=== PATIENT | male | born 1940 | race Caucasian/White ===

== ENCOUNTER → 2021-10-13 12:46 | Outpatient (BNVA) | payer OTHER, SELFPAY | PROVIDERS: PCP Family Medicine; Visit Provider Internal Medicine | DX: I48.91 Unspecified atrial fibrillation (principal); E03.9 Hypothyroidism, unspecified; I10 Essential (primary) hypertension; R06.00 Dyspnea, unspecified; Z79.01 Long term (current) use of anticoagulants; Z87.891 Personal history of nicotine dependence; M79.606 Pain in leg, unspecified | CPT/HCPCS: 99213; 99214 ==

== ENCOUNTER 2021-11-10 13:13 | Outpatient (CLI) | payer OTHER, SELFPAY ==
--- NOTE | 2021-11-10 15:00 | USCV_ITS ---
Michela Crystal Age: 80 Gender: M : 1940 Exam Date: 11/10/2021 14:22 Ordering Phys: Glen Montemayor M.D ([email or web address]) Technologist: Exam [place] [facility] [place]ication: SHORTNESS OF BREATH BP: 135 / 74 HR: 69 Rhythm: Sinus Technical Quality: Adequate MEASUREMENTS (Male / Female) Normal Values 2D ECHO LV Diastolic Diameter PLAX 5.0 cm 4.2 - 5.9 / 3.9 - 5.3 cm LV Systolic Diameter PLAX 3.1 cm IVS Diastolic Thickness 1.1 cm 0.6 - 1.0 / 0.6 - 0.9 cm IVS Systolic Thickness 1.6 cm LVPW Diastolic Thickness 1.5 cm 0.6 - 1.0 / 0.6 - 0.9 cm LVPW Systolic Thickness 1.5 cm LVOT Diameter 2.0 cm LV Ejection Fraction 2D Teich 68.4 % LV Ejection Fraction MOD 2C 60.2 % LV Ejection Fraction 2C AL 62.9 % LA Diameter 3.8 cm M-MODE LV Diastolic Diameter MM 5.2 cm 4.2 - 5.9 / 3.9 - 5.3 cm LV Systolic Diameter MM 3.5 cm LV Ejection Fraction MM Teich 61.0 % IVS Diastolic Thickness MM 1.1 cm 0.6 - 1.0 / 0.6 - 0.9 cm IVS Systolic Thickness MM 1.7 cm LVPW Diastolic Thickness MM 1.2 cm 0.6 - 1.0 / 0.6 - 0.9 cm LVPW Systolic Thickness MM 1.6 cm RV Diastolic Diameter MM 2.0 cm Aortic Annulus Diameter 3.5 cm LA Ao Ratio MM 1.3 MV E Point Septal Separation 1.3 cm DOPPLER AV Peak Velocity 127.0 cm/s LVOT Peak Velocity 109.0 cm/s AV Area Cont Eq vti 3.0 cm squared AV Area Cont Eq pk 2.8 cm squared MV Area PHT 5.0 cm squared Mitral E to A Ratio 2.5 MV E' Velocity 91.0 cm/s TR Peak Velocity 282.5 cm/s TR Peak Gradient 31.9 mmHg Right Atrial Pressure 3.0 mmHg Pulmonary Artery Systolic Pressu 34.9 mmHg PV Peak Velocity 73.0 cm/s FINDINGS Left Ventricle Left ventricle is normal in size. LV systolic function is normal with EF 55 to 60%. No regional wall motion abnormalities are seen. Right Ventricle RV is normal in size and function Right Atrium Normal in size Left Atrium Left atrium is dilated Mitral Valve Mitral valve is structurally normal. Mild mitral regurgitation Aortic Valve Aortic valve is structurally normal. No significant stenosis or regurgitation. Tricuspid Valve Tricuspid valve is normal structurally. Mild tricuspid regurgitation. Insufficient TR jet to appreciate RVSP Pulmonic Valve Mild pulmonic regurgitation Pericardium Normal Aorta Normal-sized IVC CONCLUSIONS LV systolic function is normal with EF of 55 to 60%. Left atrial dilation Mild mitral regurgitation Mild tricuspid regurgitation Mild pulmonic regurgitation No comparison studies are available Glen Montemayor MD (Electronically Signed) Final Date: 21 November 2021 23:23 S
== END 2021-11-10 13:14 | disposition home or self-care (01) ==
PROVIDERS: PCP Family Medicine; Visit Provider Internal Medicine
DX: I08.1 Rheumatic disorders of both mitral and tricuspid valves (principal)
CPT/HCPCS: 93306

== ENCOUNTER 2021-11-10 13:13 | Outpatient (CLI) | payer OTHER, SELFPAY ==
--- NOTE | 2021-11-10 14:15 | USCV_ITS ---
Michela Crystal Age: 80 Gender: M : 1940 Exam Date: 11/10/2021 14:38 Ordering Phys: Glen Montemayor M.D ([email or web address]) Technologist: Exam Location[place] [facility] [place] [facility] [place]ication: leg weakness Risk Factors: Previous Vascular Surgery: RIGHT LEFT BP: 110.0 / 64.00 BP: 110.0/ 68.00 0 0 Waveform Velocity (cm/s) Velocity (cm/s) Waveform Biphasic 80.8 Iliac Prox 91.7 Triphasic Biphasic 82.3 Iliac Mid 68.8 Monophasic Biphasic 78.5 Iliac Distal 83.3 Biphasic Biphasic 79.3 FARROWING WORKER 49.2 Biphasic Biphasic 82.3 SFA Prox 66.3 Triphasic Triphasic 77.7 SFA Mid 64.5 Biphasic Biphasic 85.4 SFA Dist 81.5 Biphasic Triphasic 70.7 POP 54.6 Biphasic Biphasic 71.0 MANAGER OF EMPLOYEE RELATIONS 51.1 Biphasic Biphasic 56.7 DPA 62.0 Triphasic 1.0 AMBAR 1.0 FINDINGS rt charter boat captain 110 rt dpa 110 lt charter boat captain 110 lt dpa 110 Normal resting ABIs bilaterally Near normal arterial Doppler waveforms Normal Doppler flow velocities CONCLUSIONS No evidence of any significant arterial obstruction, based on the above findings. Dr Berna Thorpe MD [facility] (Electronically Signed) Final Date: 16 November 2021 10:07 S
== END 2021-11-10 13:14 | disposition home or self-care (01) ==
LOC: RAD 13:14
PROVIDERS: PCP Family Medicine; Visit Provider Internal Medicine
DX: M79.606 Pain in leg, unspecified (principal)
CPT/HCPCS: 93925

== ENCOUNTER 2022-02-09 09:43 | Outpatient (CLI) | payer OTHER, SELFPAY ==
--- NOTE | 2022-02-09 11:15 | USCV_ITS ---
Michela Crystal Age: 81 Gender: M : 1940 Exam Date: 02/09/2022 11:07 Ordering Phys: Glen Montemayor M.D ([email or web address]) Technologist: Isai Paul [place] [facility] [place]: leg pain RIGHT LEFT Brachial 133.00 mmHg Brachial 127.00 mmHg Pressure (mmHg) Waveform Pressure (mmHg) Waveform 120.00 DIGITAL ASSOCIATE 149.00 142.00 DPA 143.00 1.07 Ankle/Brachial Index 1.12 70.00 Pre-Exercise Toe Pressure 98.00 0.53 Pre-Exercise Toe/Brachial Index 0.74 FINDINGS Resting AMBAR 1.07 on the right side and 1.12 on the left side. Resting TBI of 0.53 on the right side and 0.74 on the left side CONCLUSIONS 1. Normal resting AMBAR and TBI on the left side suggesting no significant arterial obstruction. 2. Normal resting AMBAR with slightly diminished resting TBI on the right side suggesting mild peripheral artery disease , possibly involving the distal vessels Dr Berna Thorpe MD [facility] (Electronically Signed) Final Date: 09 February 2022 21:03 S
== END 2022-02-09 09:44 | disposition home or self-care (01) ==
LOC: RAD 09:50
PROVIDERS: PCP Family Medicine; Visit Provider Internal Medicine
DX: M79.604 Pain in right leg (principal)
CPT/HCPCS: 93922

== ENCOUNTER 2022-02-11 16:29 | Emergency (ER) | payer OTHER, SELFPAY ==
[2022-02-11 16:58] VITALS: BP 112/70; PULSE 72; RESP 18; TEMP 36.6; O2SAT 95
--- NOTE | 2022-02-11 17:13 | ED_ITS ---
HPI - SOB/Dyspnea General: Chief Complaint: Shortness of Breath/Dyspnea Stated Complaint: abd pain, sob Time Seen by Provider: 02/11/22 17:13 History of Present Illness: HPI Narrative: Mr Crystal is an 81-year-old gentleman with history of hypertension, thyroid disorder, atrial fibrillation on chronic anticoagulation presenting to the emergency department due to shortness of breath and generalized weakness. He endorses progressively worsening symptoms for approximately 1 month. He describes feeling proximal muscle weakness in his lower extremities to the point that he feels difficulty walking. He also endorses progressively worsening dyspnea on exertion. He reports being unable to walk from his bedroom to the bathroom because he gets short of breath. Denies associated chest pain or infectious symptoms with this. Intensity symptoms is moderate to severe and worse with exertion. No other specific changes in health, exacerbating, or alleviating factors identified. Onset (ago): week(s) Timing: progressively worsening Severity: moderate Exacerbating factors: exertion and movement Known history of: other Review of Systems General: Reports: 10 or more systems reviewed and unremarkable except in HPI and below PFSH ED PFSH: Medical History Abdominal aortic aneurysm (AAA) Atrial fibrillation Celiac disease GERD (gastroesophageal reflux disease) HTN (hypertension) Hypothyroidism Surgical History S/P PTCA (percutaneous transluminal coronary angioplasty) Social History Smoking and tobacco status: never smoked Physical Exam Const: COMMON NORMALS: patient oriented x3 and alert GENERAL APPEARANCE: cooperative and well developed HENMT: COMMON NORMALS: normocephalic and atraumatic HEAD & SCALP: normocephalic and atraumatic Eye: COMMON NORMALS: conjunctivae normal CONJUNCTIVA: Yes conjunctivae normal SCLERA: sclerae normal Neck/C-Spine: COMMON NORMALS: supple GENERAL: Yes trachea midline Resp: COMMON NORMALS: clear to auscultation bilaterally EFFORT & INSPECTION: Yes able to speak in complete sentences AUSCULTATION: clear to auscultation bilaterally Cardio: COMMON NORMALS: regular rate and regular rhythm RATE: regular rate RHYTHM: regular rhythm GI: COMMON NORMALS: Soft to palpation PALPATION: Yes Soft to palpation, No Tenderness to palpation present (GI), No Guarding due to palpation present (GI) and No Rigid due to palpation Extremity: GENERAL: Yes normal exam except as noted and No edema Neuro: COMMON NORMALS: patient oriented x3, CN's II-XII intact bilaterally, moves all extremities, no focal motor deficits and no sensory deficits noted SENSORIUM/ORIENTATION: Yes alert and No Orientation impaired Psych: COMMON NORMALS: mental status grossly normal and Normal thought process present THOUGHT PROCESS: Normal thought process present Course Vital Signs: Vital signs: Vital Signs Temperature 97.8 F 02/11/22 16:58 Pulse Rate 83 02/11/22 21:36 Respiratory Rate 18 02/11/22 21:36 Blood Pressure 132/76 02/11/22 21:36 Pulse Oximetry 95 02/11/22 21:36 Oxygen Delivery Me thod 02/11/22 16:58 MDM - SOB/Dyspnea Medical Decision Making 81-year-old gentleman presenting with generalized illness that has been increasing. Mildly ill appearing on exam. EKG notable for atrial fibrillation with slow ventricular spots, no STEMI. Labs with mild leukocytosis, hemoglobin normal. Metabolic panel with elevated creatinine, patient does endorse a history of kidney disease. Initial lactic acid elevated with improvement on repeat. 2-hour delta troponin is normal. Negative viral studies. Chest x-ray with COPD and effusions. CT chest with pulmonary fibrosis and effusions. Incidental findings discussed. Patient given steroids and Lasix. I discussed various disposition options with patient. He is comfortable with discharge. He is on room air and I will message case management for follow-up. Most likely etiology of patient's symptoms is acute on chronic heart failure and exacerbation of underlying pulmonary fibrosis as well as baseline CKD. The results of ED evaluation were discussed with the patient including prescriptions and/or symptomatic cares (if applicable) including appropriate and responsible use, followup plan, and return precautions. The patient verbalized understanding and felt safe for discharge. Medical Records I reviewed the patient's medical records. Lab Data I reviewed the patient's lab results. 02/11/22 17:51 02/11/22 17:51 Labs/Radiology: Radiology Impressions Chest X-Ray 02/11/22 17:31 IMPRESSION: 1. The lungs are hyperinflated, consistent with COPD. 2. Moderate-sized left pleural effusion. 3. Increased density at the left lung base consistent with atelectasis versus consolidation. 4. Nonspecific 6 mm nodule, right upper lobe. No previous studies available for comparison. Consider noncontrast CT chest to further evaluate. Chest CT 02/11/22 19:52 IMPRESSION: 1. Bilateral subpleural fibrosis in both lungs. Compressive atelectasis noted in the inferior lingula and the left lower lobe. No consolidative infiltrate. 2. Moderate-sized left pleural effusion. 3. Diffuse atherosclerosis of the aorta. Ascending aorta is dilated, measuring 4.2 cm in transverse diameter. Descending thoracic aorta also measures 4.2 cm in diameter. Recommend clinical assessment and follow-up. 4. Tiny calcified gallstones are seen in the dependent portion of the gallbladder. No changes of cholecystitis. Laboratory Results WBC 11.0 10^3/uL (4.0-10.0) H 02/11/22 17:51 RBC 4.96 10^6/uL (4.1-5.3) 02/11/22 17:51 Hgb 16.2 g/dL (11.7-16.6) 02/11/22 17:51 Hct 48.5 % (42.0-52.0) 02/11/22 17:51 MCV 97.8 fl (80-94) H 02/11/22 17:51 MCH 32.7 pg (28.0-34.0) 02/11/22 17:51 MCHC 33.4 g/dL (30.0-36.0) 02/11/22 17:51 RDW 12.7 % (12.1-15.1) 02/11/22 17:51 Plt Count 327 10^3/cmm (130-400) 02/11/22 17:51 MPV 10.1 fL (7.4-10.4) 02/11/22 17:51 Neut % (Auto) 85.6 % 02/11/22 17:51 Lymph % (Auto) 5.6 % 02/11/22 17:51 [place] % (Auto) 7.7 % 02/11/22 17:51 Eos % (Auto) 0.2 % 02/11/22 17:51 Baso % (Auto) 0.5 % 02/11/22 17:51 Neut # (Auto) 9.40 10^3/uL (1.8-7.7) H 02/11/22 17:51 Lymph # (Auto) 0.6 10^3/uL (0.8-4.8) L 02/11/22 17:51 [place] # (Auto) 0.9 10^3/uL (0.2-0.9) 02/11/22 17:51 Eos # (Auto) 0.0 10^3/uL (0.0-0.8) 02/11/22 17:51 Baso # (Auto) 0.1 10^3/uL (0.0-0.1) 02/11/22 17:51 Nucleated RBC % (auto) 0 % 02/11/22 17:51 Nucleated RBCs # 0.0 /100WBC 02/11/22 17:51 ESR 6 mm/hr (0-10) 02/11/22 17:51 Sodium 140 mmol/L (136-145) 02/11/22 17:51 Potassium 4.2 mmol/L (3.5-5.1) 02/11/22 17:51 Chloride 101 mmol/L (98-107) 02/11/22 17:51 Carbon Dioxide 22 mmol/L (22-29) 02/11/22 17:51 Anion Gap 21.2 (5-19) H 02/11/22 17:51 BUN 37 mg/dL (8-23) H 02/11/22 17:51 Creatinine 2.4 mg/dL (0.7-1.2) H 02/11/22 17:51 GFR Calculation Not Reportable 02/11/22 17:51 Glucose 131 mg/dL (65-115) H 02/11/22 17:51 Calculated Osmolality 300 mOsm/kg (285-295) H 02/11/22 17:51 Lactic Acid 3.1 mmol/L (0.5-2.2) H 02/11/22 17:51 Lactic Acid (Sepsis) 1.6 mmol/L (0.5-2.2) 02/11/22 19:52 Calcium 9.8 mg/dL (8.5-10.5) 02/11/22 17:51 Total Bilirubin 1.3 mg/dL (0.15-1.2) H 02/11/22 17:51 AST 16 U/L (0-40) 02/11/22 17:51 ALT 18 U/L (0-41) 02/11/22 17:51 Alkaline Phosphatase 169 U/L (40-130) H 02/11/22 17:51 Creatine Kinase 50 U/L (39-308) 02/11/22 17:51 Troponin T Baseline 31 ng/L (0-15) H 02/11/22 17:51 Troponin T 120 Minute 23.56 ng/L (0-15) H 02/11/22 19:22 Delta Troponin T -7.44 ABS# (0-10) L 02/11/22 19:22 C-Reactive Protein 29.2 mg/L (0.0-4.9) H 02/11/22 17:51 NT-Pro-B Natriuret Pep 2705 pg/mL (0-450) H 02/11/22 17:51 Total Protein 8.6 g/dL (6.6-8.7) 02/11/22 17:51 Albumin 3.7 g/dL (3.5-5.2) 02/11/22 17:51 Globulin 4.9 g/dL (1.3-4.6) H 02/11/22 17:51 Procalcitonin 0.11 ng/mL (0-0.5) 02/11/22 17:51 TSH 0.47 uIU/mL (0.27-4.20) 02/11/22 17:51 Nasal Influ A H1 2009 PCR Not detected (NOT DETECT) 02/11/22 17:56 Adenovirus (PCR) Not detected (NOT DETECT) 02/11/22 17:56 C. pneumoniae DNA (PCR) Not detected (NOT DETECT) 02/11/22 17:56 Coronavirus 229E (PCR) Not detected (NOT DETECT) 02/11/22 17:56 Human Metapneumovir PCR Not detected (NOT DETECT) 02/11/22 17:56 Influenza A (H1) PCR Not detected (NOT DETECT) 02/11/22 17:56 Influenza A (H3) PCR Not detected (NOT DETECT) 02/11/22 17:56 Influenza Type A (PCR) Not detected (NOT DETECT) 02/11/22 17:56 Influenza Type B (PCR) Not detected (NOT DETECT) 02/11/22 17:56 M. pneumoniae (PCR) Not detected (NOT DETECT) 02/11/22 17:56 Parainfluenza 1 (PCR) Not detected (NOT DETECT) 02/11/22 17:56 Parainfluenza 2 (PCR) Not detected (NOT DETECT) 02/11/22 17:56 Parainfluenza 3 (PCR) Not detected (NOT DETECT) 02/11/22 17:56 Parainfluenza 4 (PCR) Not detected (NOT DETECT) 02/11/22 17:56 RSV Type A (PCR) Not detected (NOT DETECT) 02/11/22 17:56 RSV Type B (PCR) Not detected (NOT DETECT) 02/11/22 17:56 Entero/Rhino (PCR) Not detected (NOT DETECT) 02/11/22 17:56 SARS-CoV-2 (PCR) Not detected (NOT DETECT) 02/11/22 17:56 Discharge Plan Discharge Patient Disposition: Home Clinical Impression: Shortness of breath, Pulmonary fibrosis, Pleural effusion on left, Aortic dilatation, Elevated brain natriuretic peptide (BNP) level, Chronic kidney disease Condition: Stable Prescriptions: New Lasix 40 mg tablet 40 mg PO QAM Qty: 30 0RF potassium chloride 10 mEq capsule, extended release 10 meq PO DAILY Qty: 30 0RF albuterol sulfate 90 mcg/actuation HFA aerosol inhaler 2 inh inhalation Q4H PRN (Reason: shortness of breath or wheezing) Qty: 8.5 0RF No Action amlodipine 10 mg tablet 10 mg PO DAILY atorvastatin 80 mg tablet 80 mg PO DAILY cholecalciferol (vitamin D3) 25 mcg (1,000 unit) capsule 1,000 unit PO DAILY famotidine 40 mg tablet 40 mg PO DAILY hydralazine 25 mg tablet 25 mg PO TID levothyroxine 150 mcg capsule 150 mcg PO DAILY potassium chloride 20 mEq tablet extended release 20 meq PO DAILY tramadol 50 mg tablet 50 mg PO DAILY PRN [id number] Tablet PO Eliquis 5 mg tablet 5 mg PO BID Discharge Orders: Discharge ED (Routine); Ordered 02/11/22 Ordered By: Alek Valente Referrals: Lola Aldana MD [Primary Care Provider] - Discharge Diet: Usual diet Discharge Activity: Increase activity as tolerated Patient Instructions: Furosemide (By mouth) (Lasix), Pulmonary Fibrosis (ED), Chronic Kidney Disease (ED), Pleural Effusion (DC), Shortness of Breath (ED) Activity Restrictions/Additional Instructions: Thank you for visiting the emergency department. You were seen and evaluated for shortness of breath. The exact cause of your symptoms is unclear though may be related to pulmonary fibrosis and pleural effusion. Laboratory studies are fairly normal, you do have an elevated creatinine which is a measure of kidney function. Additionally you have a mildly elevated BNP which is a measure of overall fluid. CT scan shows bilateral subpleural fibrosis and moderate sized left pleural effusion. Additionally you have a ascending and descending dilation of the aorta which requires follow-up for ultrasound. Further testing can be arranged by your primary care provider. I recommend repeat laboratory studies in 5 to 7 days to reevaluate kidney function and electrolytes. Additionally I will message case management for follow-up with a brick catcher. For the pulmonary fibrosis I will prescribe steroids and inhaler. Please also use your albuterol metered-dose inhaler 2 puffs every 4 hours for 24 hours followed by 2 puffs every 6 hours for 24 hours followed by 2 puffs every 8 hours for 24 hours and then return to the normal schedule. Please return to the emergency department for worsening symptoms, dizziness or lightheadedness, worsening shortness of breath, chest pain, decreased urine out put, or anything else that you are concerned about and feel needs emergency department evaluation. Coding Level of Care Code ED Diesel Electrician for Edilson Shepherd
--- NOTE | 2022-02-11 17:31 | XRR_ITS ---
PROCEDURE INFORMATION: Exam: XR Chest Exam date and time: 02/11/2022 5:36 PM Age: 81 years old Clinical indication: Shortness of breath; Patient HX: HX prostate CA; Additional info: SOB TECHNIQUE: Imaging protocol: Radiologic exam of the chest. Views: 1 view. COMPARISON: No relevant prior studies available. FINDINGS: Lungs: The lungs are hyperinflated, consistent with COPD. Mild prominence of the interstitial markings, likely chronic. Increased density at the left lung base consistent with atelectasis versus consolidation. No right-sided pulmonary infiltrates are appreciated. Nonspecific 6 mm nodule, right upper lobe. Pleural spaces: Moderate-sized left pleural effusion. Heart/Mediastinum: No cardiomegaly. Vasculature: Thoracic aorta is tortuous and atherosclerotic. Bones/joints: Degenerative spine changes are noted. XR/XR chest 1V portable [id number] IMPRESSION: 1. The lungs are hyperinflated, consistent with COPD. 2. Moderate-sized left pleural effusion. 3. Increased density at the left lung base consistent with atelectasis versus consolidation. 4. Nonspecific 6 mm nodule, right upper lobe. No previous studies available for comparison. Consider noncontrast CT chest to further evaluate.
--- NOTE | 2022-02-11 17:40 | ECG_ITS ---
[facility] Test Date: 2022-02-11 Pat Name: Michela Crystal Department: Room: Gender: Male Biomedical Photographer: : 1940 Requested By: Alek Valente Order Number: [id number] Madhu MD: Glen Montemayor M.D. Measurements Intervals [employer] Rate: 58 P: 0 [place]: 0 QRS: 6 QRSD: 96 T: 34 QT: 433 QTc: 428 Interpretive Statements ATRIAL FIBRILLATION WITH SLOW VENTRICULAR RESPONSE NONSPECIFIC T-WAVE ABNORMALITY No previous ECG available for comparison Electronically Signed On 02-12-2022 13:48:05 ROTOFORMER BACKTENDER by Glen Montemayor M.D. [id number]
[2022-02-11 18:09] LABS: Basophils # 0.1 10^3/uL (0.0-0.1); Basophils % 0.5 %; Eosinophils % 0.2 %; Hematocrit 48.5 % (42.0-52.0); Hemoglobin 16.2 g/dL (11.7-16.6); Lymphocytes # 0.6 10^3/uL (0.8-4.8); Lymphocytes % 5.6 %; Mean Corpuscular HGB Conc 33.4 g/dL (30.0-36.0); Mean Corpuscular Hemoglobin 32.7 pg (28.0-34.0); Mean Corpuscular Volume 97.8 fl (80-94); Mean Platelet Volume 10.1 fL (7.4-10.4); Monocytes # 0.9 10^3/uL (0.2-0.9); Monocytes % 7.7 %; Neutrophils % 85.6 %; Nucleated Red Blood Cells % 0 %; Platelet Count 327 10^3/cmm (130-400); Red Blood Count 4.96 10^6/uL (4.1-5.3); Red Cell Distribution Width 12.7 % (12.1-15.1)
[2022-02-11 18:12] LABS: Erythrocyte Sedimentation Rate 6 mm/hr (0-10)
[2022-02-11 18:27] LABS: Lactic Sepsis W/Reflex 3.1 mmol/L (0.5-2.2)
[2022-02-11 18:43] LABS: C Reactive Protein 29.2 mg/L (0.0-4.9); Creatine Phosphokinase 50 U/L (39-308)
[2022-02-11 18:55] LABS: Alanine Aminotransferase 18 U/L (0-41); Albumin Level 3.7 g/dL (3.5-5.2); Alkaline Phosphatase 169 U/L (40-130); Anion Gap 21.2 (5-19); Aspartate Amino Transferase 16 U/L (0-40); Blood Urea Nitrogen 37 mg/dL (8-23); Calcium 9.8 mg/dL (8.5-10.5); Carbon Dioxide 22 mmol/L (22-29); Chloride 101 mmol/L (98-107); Globulin 4.9 g/dL (1.3-4.6); Glucose 131 mg/dL (65-115); NT Pro B Type Natriuretic Pept 2705 pg/mL (0-450); Osmolality Calculated 300 mOsm/kg (285-295); Potassium 4.2 mmol/L (3.5-5.1); Sodium 140 mmol/L (136-145); Thyroid Stimulating Hormone 0.47 uIU/mL (0.27-4.20); Total Bilirubin 1.3 mg/dL (0.15-1.2); Total Protein 8.6 g/dL (6.6-8.7)
[2022-02-11 19:25] LABS: Troponin(5th) Baseline 31 ng/L (0-15)
--- NOTE | 2022-02-11 19:31 | ECG_ITS ---
[facility] Test Date: 2022-02-11 Pat Name: Michela Crystal Department: Room: Gender: Male Vending Technician: : 1940 Requested By: Alek Valente Order Number: [id number] Madhu MD: Glen Montemayor M.D. Measurements Intervals [place] Rate: 49 P: 0 [place]: 0 QRS: -8 QRSD: 92 T: 34 QT: 460 QTc: 416 Interpretive Statements ATRIAL FIBRILLATION WITH SLOW VENTRICULAR RESPONSE MODERATE ST DEPRESSION [0.05+ mV ST DEPRESSION] Compared to ECG 02/11/2022 17:40:49 ST (T wave) deviation now present T-wave abnormality no longer present Electronically Signed On 02-12-2022 13:52:24 CHEMICAL CHECKER by Glen Montemayor M.D. [id number]
[2022-02-11 19:44] LABS: Reflex Lactate Order REFLEX LACTIC ORDERD
[2022-02-11 19:46] LABS: Procalcitonin 0.11 ng/mL (0-0.5)
--- NOTE | 2022-02-11 19:52 | CTR_ITS ---
PROCEDURE INFORMATION: Exam: CT Chest Without Contrast; Diagnostic Exam date and time: 02/11/2022 8:00 PM Age: 81 years old Clinical indication: Shortness of breath; Prior surgery; Surgery type: Coronary stent. Patient HX: C/O SOB TECHNIQUE: Imaging protocol: Diagnostic computed tomography of the chest without contrast. Radiation optimization: All CT scans at this facility use at least one of these dose optimization techniques: automated exposure control; mA and/or kV adjustment per patient size (includes targeted exams where dose is matched to clinical indication); or iterative reconstruction. COMPARISON: CR (CHEST, ) 02/11/2022 5:36 PM RADIATION DOSE METRICS: Total DLP (mGy-cm): 250.25 FINDINGS: Lungs: Severe centrilobular emphysema noted. Bilateral subpleural fibrosis in both lungs. Compressive atelectasis noted in the inferior lingula and the left lower lobe. No consolidative infiltrate. 10 mm calcified pulmonary granuloma right lower lobe. Pleural spaces: Moderate-sized left pleural effusion. No right pleural effusion. No pneumothorax. Heart: No cardiomegaly demonstrated. Coronary arteries: The coronary arteries demonstrate atherosclerotic calcifications. Lymph nodes: Unremarkable. No enlarged lymph nodes. Vasculature: Diffuse atherosclerosis of the aorta. Ascending aorta is dilated, measuring 4.2 cm in transverse diameter. Descending thoracic aorta also measures 4.2 cm in diameter. Gallbladder and bile ducts: Tiny calcified gallstones are seen in the dependent portion of the gallbladder. No changes of cholecystitis. Bones/joints: Degenerative spine changes are noted. No fracture or other acute osseous abnormality. Soft tissues: Mild bilateral gynecomastia. No acute soft tissue abnormality. CT/CT chest wo con [id number] IMPRESSION: 1. Bilateral subpleural fibrosis in both lungs. Compressive atelectasis noted in the inferior lingula and the left lower lobe. No consolidative infiltrate. 2. Moderate-sized left pleural effusion. 3. Diffuse atherosclerosis of the aorta. Ascending aorta is dilated, measuring 4.2 cm in transverse diameter. Descending thoracic aorta also measures 4.2 cm in diameter. Recommend clinical assessment and follow-up. 4. Tiny calcified gallstones are seen in the dependent portion of the gallbladder. No changes of cholecystitis.
[2022-02-11 20:00] VITALS: BP 117/78; PULSE 66; RESP 18; O2SAT 95
[2022-02-11 20:05] LABS: Troponin 5 2HR 23.56 ng/L (0-15); Troponin 5 2HR Delta -7.44 ABS# (0-10)
[2022-02-11 20:19] LABS: Lactic Acid level (Lactate) 1.6 mmol/L (0.5-2.2)
[2022-02-11] MEDS: FUROsemide 10 mg/mL SDV 4mL 40 MG IVP (20:53)
[2022-02-11 21:00] VITALS: BP 124/79; PULSE 66; RESP 18; O2SAT 94
[2022-02-11 21:08] VITALS: O2SAT 95
[2022-02-11 21:23] LABS: Adenovirus Not Detected (NOT DETECT); Chlamydia Pneumoniae Not Detected (NOT DETECT); Coronavirus 229E,HKU1,NL63,OC4 Not Detected (NOT DETECT); Human Metapneumovirus Not Detected (NOT DETECT); Human Rhinovirus/Enterovirus Not Detected (NOT DETECT); Influenza A Not Detected (NOT DETECT); Influenza A H1 Not Detected (NOT DETECT); Influenza A H1-2009 Not Detected (NOT DETECT); Influenza A H3 Not Detected (NOT DETECT); Influenza B Not Detected (NOT DETECT); Mycoplasma Pneumoniae Not Detected (NOT DETECT); Parainfluenza Virus Type 1 Not Detected (NOT DETECT); Parainfluenza Virus Type 2 Not Detected (NOT DETECT); Parainfluenza Virus Type 3 Not Detected (NOT DETECT); Parainfluenza Virus Type 4 Not Detected (NOT DETECT); Respiratory Syncytial Virus A Not Detected (NOT DETECT); Respiratory Syncytial Virus B Not Detected (NOT DETECT); SARS-COV-2 Not Detected (NOT DETECT)
[2022-02-11 21:36] VITALS: BP 132/76; PULSE 83; RESP 18; O2SAT 95
--- NOTE | 2022-02-12 10:44 | DCPLANNER ---
Addendum entered by Deanna Cox 05/18/22 08:46: Patient did not attend appointment Addendum entered by Deanna Cox 02/16/22 11:05: Patient has a follow up appointment scheduled for Tuesday, May 17, 2022 at 11:[address] Gaona with pulmonology at [facility]. Clinic will call patient with appointment information. Original Note: desktop support manager had message to schedule a follow up appointment for patient with pulmonology. desktop support manager sent patients information to the front office staff at [facility]. Patients information will be printed and reviewed. Clinic will call patient with appointment information.
== END 2022-02-11 21:37 | disposition home or self-care (01) ==
PROVIDERS: Emergency Provider Emergency Medicine; PCP Family Medicine
DX: J84.10 Pulmonary fibrosis, unspecified (principal); J90 Pleural effusion, not elsewhere classified; I77.819 Aortic ectasia, unspecified site; R79.89 Other specified abnormal findings of blood chemistry; Z79.01 Long term (current) use of anticoagulants; Z20.822 Contact with and (suspected) exposure to COVID-19; I12.9 Hypertensive chronic kidney disease with stage 1 through stage 4 chronic kidney disease, or unspecified chronic kidney disease; N18.9 Chronic kidney disease, unspecified
CPT/HCPCS: 36415; 71045; 71250; 80053; 82550; 83605; 83880; 84145; 84443; 84484; 85025; 85651; 86140; 87486; 87581; 87633; 93005; 96374; 96375; 99285; J1940; J2930